=== PATIENT | male | born 1945 | race Caucasian/White ===

== ENCOUNTER → 2021-10-01 | Outpatient (CLI) | payer MEDICARE, BC | LOC: KOH-I 14:57 | DX: R31.9 Hematuria, unspecified (principal); N20.0 Calculus of kidney; N26.1 Atrophy of kidney (terminal) | CPT/HCPCS: 74176 ==

== ENCOUNTER → 2021-10-25 | Outpatient (CLI) | payer MEDICARE, BC | LOC: CT 08:04 | DX: R31.0 Gross hematuria (principal); N28.1 Cyst of kidney, acquired | CPT/HCPCS: Q9967 ==